=== PATIENT | female | born 1950 | race Caucasian/White ===

== ENCOUNTER → 2017-05-13 | Outpatient (CLI) | payer MEDICARE, OTHER | END | disposition home or self-care (01) | LOC: GMAB 15:20 | PROVIDERS: ATTEND Family Medicine | DX: I10 Essential (primary) hypertension (principal) ==

== ENCOUNTER → 2018-02-04 | Outpatient (CLI) | payer MEDICARE, OTHER | LOC: GMAB 14:56 | PROVIDERS: ATTEND Family Medicine | DX: M15.0 Primary generalized (osteo)arthritis (principal); E53.8 Deficiency of other specified B group vitamins; I10 Essential (primary) hypertension ==

== ENCOUNTER → 2018-02-06 | Outpatient (CLI) | payer MEDICARE, OTHER ==
--- NOTE | 2018-02-07 09:17 | MRI ---
EXAM DESCRIPTION: Brain w/o Contrast: MRI. CLINICAL HISTORY: R41.9-UNSPECIFIED SYMPTOMS AND SIGNS INVOLVING COGNITIVE FUNCTION COMPARISON: MRI brain and orbits 03/08/2014. TECHNIQUE: Multiplanar, high-field MRI unit, multiple diffusion sequences, multiple conventional sequences without contrast. Technically difficult study due to patient motion. FINDINGS: Bilateral multiple foci of hyperintense FLAIR and T2-weighted signal in the periventricular white matter . Normal signal bilateral basal ganglia. No hemorrhage, no cerebral edema, no mass-effect. Normal signal in the brainstem and cerebellar hemispheres. Minimal prominence of the cerebellar folia. No hemorrhage, no cerebral edema, no mass-effect. Concordance of the diffusion and non-diffusion sequences with no diffusion restriction. Bilateral lateral ventricular bodies have enlarged slightly since the prior study. Temporal horns are not as dilated as the bodies.. Cortical sulci and basilar cisterns are also slightly more prominent than on the prior study. No effacement or displacement. No midline shift. No extra-axial hemorrhage. Normal flow signal void in the major vessels of the [place], and the venous sinuses. IACs are symmetric bilaterally. Normal signal in the bilateral mastoid air cells. No mass effect in the bilateral cerebellopontine angles. Pituitary gland occupies most of the sella. Base of the cerebellar tonsils is at the level of the foramen magnum. Paranasal sinuses are unremarkable. The bony calvarium is intact. IMPRESSION: 1. Central and cortical atrophy has increased in the cerebral and cerebellar hemispheres since the prior study. No obstructive hydrocephalus, no intra-axial extra-axial hemorrhage, no mass effect, no midline shift. 2. Normal noncontrast MRI diffusion study with no evidence of acute or subacute infarction or diffusion restriction. Electronically signed by: Chris Jerome MD 02/07/2018 9:15 AM CDT
--- NOTE | 2018-02-11 13:24 | MAM ---
EXAM DESCRIPTION: 3D Screening BILATERAL : Digital Mammography. CLINICAL HISTORY: 67 years Female SCREENING . No complaints. No family history breast cancer. Childbirth. Postmenopausal. No HRT. COMPARISON: 2-D digital screening bilateral study 04/14/2014. Right breast digital diagnostic mammography 04/27/2014. MRI of the brain on this visit.. No prior reports available. TECHNIQUE: Bilateral CC and MLO projection full-field images, 3-D tomosynthesis digital mammographic technique. CAD not utilized. FINDINGS: The breast parenchymal density pattern is: Scattered areas of fibroglandular density. No skin thickening or nipple retraction. Bilateral solitary microcalcifications. Bilateral vascular calcifications. No focal, stellate mass or density, focal asymmetry , and no suspicious microcalcifications bilaterally. Stable mammograms compared to prior study, taking into account differences in mammographic technique IMPRESSION: BI-RADS CATEGORY: 2 - BENIGN FINDINGS. FOLLOW UP: Routine digital bilateral screening, one year interval from January 2018. Written communication explaining the IMPRESSION and follow-up, will be mailed to the patient and referring health care provider. According to the [employer], yearly mammograms are recommended starting at age 40 and continuing as long as a woman is in good health. Any breast change noted on a breast self-exam should be reported promptly to the patient's healthcare provider. Breast MRI is recommended for women with an approximately 20-25% or greater lifetime risk of breast cancer, including women with a strong family history of breast or ovarian cancer and women who have been treated for Hodgkin's disease. A negative mammographic report should not delay tissue diagnosis in patients with significant clinical history or physical findings. Extremely dense breast tissue limits the sensitivity of digital mammography. Electronically signed by: Chris Jerome MD 02/11/2018 1:22 PM CDT
== END ==
LOC: MRI 09:00
PROVIDERS: ATTEND Family Medicine
DX: Z12.31 Encounter for screening mammogram for malignant neoplasm of breast (principal); R41.9 Unspecified symptoms and signs involving cognitive functions and awareness

== ENCOUNTER → 2018-09-17 | Outpatient (CLI) | payer OTHER | LOC: GMAE 11:00 | PROVIDERS: ATTEND Family Medicine | DX: I10 Essential (primary) hypertension (principal) ==

== ENCOUNTER → 2019-10-06 | Outpatient (CLI) | payer OTHER ==
--- NOTE | 2019-10-07 12:40 | US ---
EXAM DESCRIPTION: Gall Bladder: ULTRASOUND. CLINICAL HISTORY: EPIGASTRIC PAIN COMPARISON: Abdominal radiograph and radionuclide gallbladder evaluation November 2015. Ultrasound liver October 2015. TECHNIQUE: Transabdominal scanning: [place]-scale and Doppler modes. FINDINGS: Gallbladder: Small gallbladder with multiple layering echogenic gravel or small stones with acoustic shadowing. No fluid around the gallbladder. No wall thickening. 1.9 mm. Non-tender with transducer pressure. Common bile duct: caliber 3.9 mm within normal limits. Liver: normal echogenicity; contour liver capsule smooth where seen. No fluid around the liver. Intrahepatic biliary ducts normal caliber. Doppler hepatopedal flow portal vein.. Long axis right lobe 19.92 cm. Pancreas: normal size Normal echogenicity. Duct not seen. Aorta: Proximal diameter 1.7 cm normal caliber. Right kidney: 7.4 cm long axis. Normal cortical thickness and echogenicity. No echogenic stones or hydronephrosis or perinephric fluid.. IMPRESSION: 1. Small gallbladder with multiple layering small stones or gravel. Normal wall thickness with no fluid. Nontender with transducer pressure. Normal caliber of the common bile duct. 2. Liver, pancreas, right kidney, and aorta are unremarkable for patient's age. No ascites. Electronically signed by: Chris Jerome MD 10/07/2019 12:38 PM [employer]
== END ==
LOC: US 11:43
PROVIDERS: ATTEND Nurse Practitioner Family
DX: K80.20 Calculus of gallbladder without cholecystitis without obstruction (principal)